=== PATIENT | female | born 1990 | race Two or more races ===

== ENCOUNTER 2024-11-14 22:43 | Emergency (ER) | payer OTHER ==
[~2024-11-14] VITALS: Ht 172.7 cm; Wt 78.5 kg
[2024-11-14] MEDS ORDERED: PRENATA CHEWAB1 EACH PO (22:57)
[2024-11-15] MEDS ORDERED: 0.9 % SODIUM CHLORIDE 1,000 ML IV STA (00:39)
[2024-11-15] MEDS ORDERED: PROMETHAZINE HCL 50 MG/ML AMPUL IM STA (00:42)
[2024-11-15] MEDS ORDERED: METOCLOPRAMIDE HCL 5 MG/ML VIAL IM STA (00:42)
[2024-11-15] MEDS ORDERED: FAMOtidine 10 MG/ML (4ML VIAL) IV PUSH STA (00:43)
[2024-11-15] MEDS ORDERED: PROMETHAZINE HCL 50 MG/ML AMPUL IM ONE (00:51)
[2024-11-15] MEDS ORDERED: FAMOTIDINE/PF 20 MG/2 ML VIAL ONE (00:51)
[2024-11-15] MEDS ORDERED: METOCLOPRAMIDE HCL 5 MG/ML VIAL ONE (00:52)
[2024-11-15 01:22] LABS: HEMATOCRIT 33.5 % (36.0-45.00); HEMOGLOBIN 11.4 g/dL (12.0-15.00); MEAN CELL VOLUME 79.4 fL (80.00-100.00); MEAN CORPUSCULAR HEMOGLOBIN 27.1 pg (27.00-32.0); MEAN CORPUSCULAR HGB CONC 34.1 g/dl (32.0-36.0); RED BLOOD COUNT 4.22 M/uL (4.00-6.00); RED CELL DISTRIBUTION WIDTH 13.8 % (11.5-14.5)
[2024-11-15 01:25] LABS: PLATELET COUNT 127 K/uL (150-450)
[2024-11-15 01:49] LABS: URINE APPEARANCE Clear; URINE BILIRRUBIN Negative (NEGATIVE); URINE BLOOD Negative; URINE COLOR Yellow; URINE GLUCOSE Negative (NEGATIVE); URINE KETONE Negative (NEGATIVE); URINE LEUKOCYTE Negative; URINE NITRATE Negative; URINE PROTEIN Negative (NEGATIVE); URINE UROBILINOGEN 0.2 E.U./dl
[2024-11-15 01:52] LABS: URINE BACTERIA 3462.6 uL (0.0-1933); URINE RBC 4.7 uL (0.0-20.8); URINE WBC 19.4 uL (0.0-23.2)
[2024-11-15 02:05] LABS: BILIRUBIN TOTAL 0.27 mg/dL (0.3-1.2); CALCIUM 8.9 mg/dL (8.5-10.1); CREATININE SERUM 0.61 mg/dL (0.55-1.02); GFR 112.95; GLOBULINA 2.6 G/DL (2.4-3.5); POTASSIUM 4.13 mEq/L (3.5-5.1); TOTAL PROTEIN 5.6 gm/dL (6.4-8.2)
[2024-11-15 02:08] LABS: URINE CAST 0.14 uL (0.0-1.40)
[2024-11-15] MEDS ORDERED: 0.9 % SODIUM CHLORIDE 1,000 ML IV ONE (05:15)
== END 2024-11-15 12:10 | disposition home or self-care (01) ==
LOC: ER 22:45
DX: O26.891 Other specified pregnancy related conditions, first trimester (principal); K52.89 Other specified noninfective gastroenteritis and colitis; E86.0 Dehydration; Z3A.11 11 weeks gestation of pregnancy; Z20.822 Contact with and (suspected) exposure to COVID-19

== ENCOUNTER 2024-11-27 11:44 | Outpatient (CLI) | payer OTHER ==
[~2024-11-27 11:44] MED LIST: PRENATA CHEWAB1 EACH PO
== END 2024-11-27 11:50 | disposition home or self-care (01) ==
LOC: PRENATAL 11:44
PROVIDERS: ATTEND Obstetrics & Gynecology Maternal & Fetal Medicine
DX: O36.80X0 Pregnancy with inconclusive fetal viability, not applicable or unspecified (principal); Z36.82 Encounter for antenatal screening for nuchal translucency; Z14.8 Genetic carrier of other disease; Z3A.12 12 weeks gestation of pregnancy

== ENCOUNTER 2025-01-22 09:50 | Outpatient (CLI) | payer OTHER | END 2025-01-22 09:51 | disposition home or self-care (01) | LOC: PRENATAL 09:50 | PROVIDERS: ATTEND Obstetrics & Gynecology Maternal & Fetal Medicine | DX: O44.00 Complete placenta previa NOS or without hemorrhage, unspecified trimester (principal); Z3A.19 19 weeks gestation of pregnancy ==

== ENCOUNTER → 2025-04-16 09:45 | Outpatient (CLI) | payer OTHER | END | disposition home or self-care (01) | LOC: PRENATAL 09:45 | PROVIDERS: ATTEND Obstetrics & Gynecology Maternal & Fetal Medicine | DX: O26.849 Uterine size-date discrepancy, unspecified trimester (principal); O36.8199 Decreased fetal movements, unspecified trimester, other fetus; Z3A.32 32 weeks gestation of pregnancy ==

== ENCOUNTER 2025-05-21 15:34 | Outpatient (CLI) | payer OTHER ==
[2025-05-21 15:35] VITALS: BP 121/74
[2025-05-21] MEDS ORDERED: FOLIC ACID20 MG PO (16:31)
[2025-05-21 16:44] LABS: BASO % 0.2 % (0.1-1.2); EOS # 0.10 (0.04-0.54); EOS % 1.2 % (0.7-7.0); LYMPH # 1.61 (1.18-3.74); LYMPH % 20.0 % (19.3-53.1); MEAN PLATELET VOLUME 12.70 fl (9.4-12.4); MONO # 0.29 (0.24-0.82); MONO % 3.6 % (4.7-12.5); NEUT # 6.03 (1.56-6.13); NEUT % 74.8 % (34.0-71.1); RED CELL DISTRIBUTION WIDTH 13.4 % (11.6-14.4); URINE APPEARANCE Clear; URINE BILIRRUBIN Negative (NEGATIVE); URINE BLOOD Negative; URINE COLOR Yellow; URINE GLUCOSE Negative (NEGATIVE); URINE KETONE Negative (NEGATIVE); URINE LEUKOCYTE Negative; URINE NITRATE Negative; URINE PROTEIN Negative (NEGATIVE); URINE UROBILINOGEN 0.2 E.U./dl
[2025-05-21 16:45] LABS: URINE BACTERIA 442.5 uL (0.0-1933); URINE EPITHELIAL CELLS 4.7 uL (0.0-38.8); URINE WBC 6.9 uL (0.0-23.2)
[2025-05-21 16:46] LABS: URINE CAST 0.14 uL (0.0-1.40); URINE RBC 0.7 uL (0.0-20.8)
[2025-05-21] MEDS ORDERED: DEXTROSE 5 % AND 0.9 % NACL 1,000 ML IV SCH (17:00)
[2025-05-21 17:19] LABS: ALT/SGPT 19.0 U/L (12-78); AST/SGOT 11.0 U/L (15-37); BILIRUBIN TOTAL 0.17 mg/dL (0.3-1.2); BUN CREA RATIO 10.0 (7.0-25.0); CREATININE SERUM 0.72 mg/dL (0.55-1.02); GFR 93.29; GLOBULINA 2.8 G/DL (2.4-3.5); GLUCOSE FASTING 132.0 mg/dL (65-100); LDH 144.0 U/L (84-246); OSMOLALITY SERUM 285.0 MOSM/KG (275-295)
[2025-05-21 18:01] LABS: INR < 0.93
[2025-05-21 19:34] VITALS: BP 144/81
[2025-05-21 23:31] VITALS: BP 118/72
[2025-05-22 04:34] VITALS: BP 130/81
[2025-05-22 06:27] VITALS: BP 116/76; O2SAT 98
[2025-05-22 11:29] VITALS: BP 139/82
[2025-05-22 15:14] VITALS: BP 134/79
[2025-05-22 16:06] LABS: URINE PROT QUANT 24HR < 5.00 MG/DL
[2025-05-22 16:22] LABS: URINE PROT QUANT 24 HR 195.00 MG/24HR (42-225)
[2025-05-22 18:04] VITALS: BP 134/79
== END 2025-05-22 18:05 | disposition home or self-care (01) ==
LOC: OBS/DEL 15:34
PROVIDERS: Student in an Organized Health Care Education/Training Program; ATTEND Obstetrics & Gynecology
DX: O26.893 Other specified pregnancy related conditions, third trimester (principal); Z3A.37 37 weeks gestation of pregnancy

== ENCOUNTER 2025-05-25 12:38 | Inpatient (IN) | payer OTHER ==
[~2025-05-25] VITALS: Ht 165.1 cm; Wt 93.9 kg
[2025-05-25 11:55] VITALS: BP 137/87
[2025-05-25 12:12] VITALS: BP 129/80
[~2025-05-25 12:38] MED LIST changes: +FOLIC ACID20 MG PO
[2025-05-25 12:59] LABS: BASO % 0.3 % (0.1-1.2); EOS # 0.10 (0.04-0.54); EOS % 1.3 % (0.7-7.0); LYMPH # 1.59 (1.18-3.74); LYMPH % 20.5 % (19.3-53.1); MEAN PLATELET VOLUME 12.30 fl (9.4-12.4); MONO # 0.38 (0.24-0.82); MONO % 4.9 % (4.7-12.5); NEUT # 5.66 (1.56-6.13); NEUT % 72.7 % (34.0-71.1); RED CELL DISTRIBUTION WIDTH 13.3 % (11.6-14.4)
[2025-05-25 13:01] LABS: URINE APPEARANCE Clear; URINE BILIRRUBIN Negative (NEGATIVE); URINE BLOOD Negative; URINE COLOR Yellow; URINE GLUCOSE Negative (NEGATIVE); URINE KETONE Negative (NEGATIVE); URINE LEUKOCYTE Negative; URINE NITRATE Negative; URINE PROTEIN Negative (NEGATIVE); URINE UROBILINOGEN 0.2 E.U./dl
[2025-05-25 13:04] LABS: URINE BACTERIA 289.0 uL (0.0-1933); URINE EPITHELIAL CELLS 38.7 uL (0.0-38.8); URINE WBC 10.3 uL (0.0-23.2)
[2025-05-25 13:15] LABS: URINE CAST 0.43 uL (0.0-1.40); URINE RBC 0.7 uL (0.0-20.8)
[2025-05-25 13:47] LABS: INR < 0.93
[2025-05-25 13:52] LABS: ALT/SGPT 22.0 U/L (12-78); AST/SGOT 14.0 U/L (15-37); BILIRUBIN TOTAL 0.19 mg/dL (0.3-1.2); BUN CREA RATIO 13.0 (7.0-25.0); CREATININE SERUM 0.6 mg/dL (0.55-1.02); GFR 115.13; GLOBULINA 2.7 G/DL (2.4-3.5); GLUCOSE FASTING 97.0 mg/dL (65-100); OSMOLALITY SERUM 278.0 MOSM/KG (275-295)
[2025-05-25 15:18] VITALS: BP 147/88
[2025-05-25 19:34] VITALS: BP 137/87
[2025-05-25 23:21] VITALS: BP 125/84
[2025-05-26] VITALS (7 sets, daily range): BP systolic 113–147; BP diastolic 65–88; O2SAT 99–100
[2025-05-26] MEDS ORDERED: RINGERS SOLUTION,LACTATED 1,000 ML IV SCH (07:15)
[2025-05-26] MEDS ORDERED: MISOPROSTOL 25 MCG TABLET VAG ONE (10:00)
[2025-05-27 03:20] VITALS: BP 131/83; O2SAT 100
[2025-05-27 07:23] VITALS: BP 133/73
[2025-05-27 10:44] VITALS: BP 147/80
[2025-05-27] MEDS ORDERED: OXYTOCIN 500 ML IV SCH (10:45)
[2025-05-27] MEDS ORDERED: MORPHINE SULFATE 4 MG/ML CARTRIDGE IV ONE (10:45)
[2025-05-27] MEDS ORDERED: OXYTOCIN 1,000 ML IV SCH (14:30)
[2025-05-27] MEDS ORDERED: ACETAMINOPHEN 500 MG GEL..CAP PO PRN (14:30)
[2025-05-27] MEDS ORDERED: CHLORHEXIDINE GLUCONATE 120 ML BOTTLE TOP ONE (15:15)
[2025-05-27] MEDS ORDERED: ERYTHROMYCIN BASE OPHT 1GM EACH TUBE OP ONE (15:15)
[2025-05-27 15:30] VITALS: BP 124/69
[2025-05-27 19:03] VITALS: BP 155/90
[2025-05-27 20:07] LABS: BASO % 0.1 % (0.1-1.2); EOS # 0.00 (0.04-0.54); EOS % 0.0 % (0.7-7.0); LYMPH # 0.92 (1.18-3.74); LYMPH % 5.6 % (19.3-53.1); MEAN PLATELET VOLUME 12.40 fl (9.4-12.4); MONO # 0.87 (0.24-0.82); MONO % 5.3 % (4.7-12.5); NEUT # 14.45 (1.56-6.13); NEUT % 88.6 % (34.0-71.1); RED CELL DISTRIBUTION WIDTH 13.2 % (11.6-14.4)
[2025-05-27 21:17] LABS: BAND MAN 1.0 %; LYMPHOCYTE MAN 7.0 %; MONOCYTE MAN 6.0 %; NEUTROPHILS MAN 86.0 %
[2025-05-28] VITALS: BP 133/78
[2025-05-28 08:42] VITALS: BP 124/81
[2025-05-28] MEDS ORDERED: PNV,CALCIUM 72/IRON/FOLIC ACID 1 TAB TABLET PO SCH (09:00)
[2025-05-28 17:14] VITALS: BP 145/89
[2025-05-29] VITALS: BP 115/65
[2025-05-29 09:40] VITALS: BP 143/89
== END 2025-05-29 14:53 | disposition home or self-care (01) | DRG 807 ==
LOC: OBS/DEL 12:38 → LDR 05-26 09:33 → OB/GYN 05-27 16:04
PROVIDERS: Student in an Organized Health Care Education/Training Program; ADMIT Obstetrics & Gynecology; ATTEND Obstetrics & Gynecology
PROC: 4A1HXCZ Monitoring of Products of Conception, Cardiac Rate, External Approach (ICD-10-PCS; 2025-05-26)
PROC: 3E0P7VZ Introduction of Hormone into Female Reproductive, Via Natural or Artificial Opening (ICD-10-PCS; 2025-05-26)
PROC: 10E0XZZ Delivery of Products of Conception, External Approach (ICD-10-PCS; principal; 2025-05-27)
PROC: 3E033VJ Introduction of Other Hormone into Peripheral Vein, Percutaneous Approach (ICD-10-PCS; 2025-05-27)
DX: O80 Encounter for full-term uncomplicated delivery (principal); Z37.0 Single live birth; Z3A.37 37 weeks gestation of pregnancy